=== PATIENT | male | born 1960 | race Caucasian/White ===

== ENCOUNTER 2016-12-15 14:11 | Emergency (ER) | payer OTHER ==
[2016-12-15 14:33] VITALS: BP 124/80
--- NOTE | 2016-12-15 15:13 | EDM.PDOC ---
ED HPI GENERAL MEDICAL PROBLEM - General Chief Complaint: General Stated Complaint: HIT IN CHEST Time Seen by Provider: 12/15/16 15:00 Source of Information: Reports: Patient History Limitations: Reports: No Limitations - History of Present Illness INITIAL COMMENTS - FREE TEXT/NARRATIVE: States was hit in the sternum by a 2 x 4 when unloading a truck. It hurt initially but he worked. worked yesterday without difficulty and today woke up and pain in mid sternum. Increase in discomfort with deep inspiration. No cough. Noted a bruise. concerned that the wires from his bypass broke. Hurts worse when he takes a deep breathe. Can pinpoint where pain is located at the bottom of the sternum. 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, Other (see below) Other Treatments DIGITAL PRODUCTION OPERATOR: none Left Chest Pain Score (Numeric/FACES): 9 - Related Data Allergies Allergy/AdvReac Type Severity Reaction Status Date / Time morphine Allergy Rash Verified 12/15/16 14:33 Penicillins Allergy Swelling Verified 12/15/16 14:33 Home Meds: Home Meds Ascorbic Acid [Vitamin C] 1,000 mg PO DAILY 12/15/16 [History] Aspirin [Low Dose Aspirin EC] 81 mg PO DAILY 12/15/16 [History] Cholecalciferol (Vitamin D3) [Vitamin D3] 2,000 unit PO DAILY 12/15/16 [History] Fish Oil/Gering-3 Fatty Acids [Fish Oil] 1 each PO DAILY 12/15/16 [History] Omeprazole Magnesium [Prilosec Otc] 20 mg PO DAILY 12/15/16 [History] guaiFENesin [Mucinex] 600 mg PO BID 12/15/16 [History] Past Medical History Cardiovascular History: Reports: [place], [place] Musculoskeletal History: Reports: Other (See Below) Other Musculoskeletal History: shoulder injury and carpal tunnel - Past Surgical History Cardiovascular Surgical History: Reports: Coronary Artery Bypass Musculoskeletal Surgical History: Reports: Carpal Tunnel Social & Family History - Tobacco Use Smoking Status *Q: Current Every Day Smoker Years of Tobacco use: 47 Packs/Tins Daily: 1 ED ROS GENERAL - Review of Systems Review Of Systems: See Below Constitutional: Reports: No Symptoms HEENT: Reports: No Symptoms Respiratory: Reports: Other (see HPI) Cardiovascular: Reports: No Symptoms GI/Abdominal: Reports: No Symptoms Musculoskeletal: Reports: Other (sternum pain) Skin: Reports: Bruising Neurological: Reports: No Symptoms Psychiatric: Reports: No Symptoms ED EXAM, GENERAL - Physical Exam Exam: See Below Exam Limited By: No Limitations General Appearance: Alert, WD/WN Nose: Normal Inspection Throat/Mouth: Normal Inspection, Normal Oropharynx, Normal Voice, No Airway Compromise Head: Atraumatic, Normocephalic Neck: Normal Inspection, Supple, Non-Tender, Full Range of Motion Respiratory/Chest: No Respiratory Distress, Lungs Clear, Normal Breath Sounds, Other (tender at the lower sternum with deep breathing and with palpation of the area.) Cardiovascular: Regular Rate, Rhythm, No Murmur Neurological: Alert, Oriented Skin Exam: Warm, Dry, Intact Course - Vital Signs Last Recorded V/S: Last Vital Signs Temp 98.0 F 12/15/16 14:22 Pulse 81 12/15/16 14:22 Resp 16 12/15/16 14:22 BP 124/80 12/15/16 14:22 Pulse Ox 98 12/15/16 14:22 - Orders/Labs/Meds Orders: Active Orders 24 hr Category Date Time Status CXR [Chest 2V] [CR] Stat Exams 12/15/16 14:42 Stop Req Ribs 2V w Chest Lt [CR] Stat Exams 12/15/16 14:45 Taken Departure - Departure Time of Disposition: 15:08 Disposition: Home, Self-Care 01 Condition: Good Clinical Impression: Chest wall injury Qualifiers: Encounter type: initial encounter Qualified Code(s): S29.9XXA - Unspecified injury of thorax, initial encounter - Discharge Information Forms: ED Department Discharge Additional Instructions: aleve as needed for discomfort Ice to the area for swelling and comfort Recheck in clinic if not improving. - Problem List & Annotations (1) Chest wall injury SNOMED Code(s): 28230857 Code(s): S29.9XXA - UNSPECIFIED INJURY OF THORAX, INITIAL ENCOUNTER Status : Acute Priority: High Qualifiers: Encounter type: initial encounter Qualified Code(s): S29.9XXA - Unspecified injury of thorax, initial encounter - Problem List Review Problem List Initiated/Reviewed/Updated: Yes - My Orders Last 24 Hours: My Active Orders 12/15/16 14:42 CXR [Chest 2V] [CR] Stat 12/15/16 14:45 Ribs 2V w Chest Lt [CR] Stat - Assessment/Plan Last 24 Hours: My Active Orders 12/15/16 14:42 CXR [Chest 2V] [CR] Stat 12/15/16 14:45 Ribs 2V w Chest Lt [CR] Stat
== END 2016-12-15 15:30 | disposition home or self-care (01) ==
LOC: CC.ED 14:11
DX: S29.9XXA Unspecified injury of thorax, initial encounter (principal); I25.2 Old myocardial infarction; Z95.1 Presence of aortocoronary bypass graft; Z98.890 Other specified postprocedural states; F17.210 Nicotine dependence, cigarettes, uncomplicated; Z79.82 Long term (current) use of aspirin; Z79.899 Other long term (current) drug therapy; Z88.0 Allergy status to penicillin; Z88.5 Allergy status to narcotic agent; W22.8XXA Striking against or struck by other objects, initial encounter; Y93.89 Activity, other specified; Y99.0 Civilian activity done for income or pay
CPT/HCPCS: 71101-LT; 99283